=== PATIENT | female | born 1950 | race Hispanic/Latino ===

== ENCOUNTER → 2024-12-13 | Day surgery (SDC) | payer BC ==
[2024-12-10 10:38] LABS: BASOPHILS % 0.8 % (0.0-1.0); EOSINOPHILS % 3.4 % (0.0-6.0); LYMPHOCYTES % 22.5 % (18.0-39.1); MONOCYTES % 7.7 % (4.4-11.3); NEUTROPHILS % 65.3 % (38.7-80.0); RED CELL DISTRIBUTION WIDTH 14.5 % (11.7-14.4)
[~2024-12-13] MED LIST: ACETAMINOPHEN 1000 MG/100 ML 100 ML IV ONE; ACETAMINOPHEN 1000 MG/100 ML IV PRN; ADVAIR 100-501 EACH INH; ARIMIDEX1 MG PO; ASPIRIN 325 MG TAB PO SCH; ATORVASTATIN CA10 MG PO; CELECOXIB 100 MG CAP PO SCH; D3-5000125 MCG; DIOVAN80 MG PO; DIPHENHYDRAMINE HCL INJ 50 MG/ML VIAL IV PRN; DOCUSATE SODIUM 100 MG CAP PO PRN; EPHEDRINE SULFATE INJ 50 MG/ML VIAL ONE; FENTANYL CITRATE/PF 100MCG/2 ML INJ ONE; HYDROCODONE/APAP 5MG-325MG TAB PO PRN; LIDOCAINE HCL 2% LOCAL INJ 5 ML SDV VIAL INJ ONE; MAGNESIUM CITRA; MONTELUKAST SOD10 MG PO; MOUNJARO2.5 MG/0.5; ONDANSETRON HCL INJ 2MG/ML 2ML 2 MG/ML VIAL IV PRN; ONDANSETRON HCL INJ 2MG/ML 2ML 2 MG/ML VIAL ONE; PROPOFOL IV EMULSION 10 MG/ML 20 ML VIAL ONE; ROPIVACAINE 246.25 MG, EPINEPHRINE HCL 1:1000 1ML 0.5 MG, CLONIDINE HCL 0.08 MG, KETORO... INJ ONE; ROPIVACAINE/EPI/CLONIDINE/KET 50 ML SYRINGE INJ ONE; SEVOFLURANE INHAL SOLN 250 ML PEN BTL ONE; SODIUM CHLORIDE 0.9% 1000ML 1,000 ML IV SCH; VENTOLIN HFA18 GM INH
[2024-12-13] MEDS: GABAPENTIN 300 MG CAP ONE (06:08)
[2024-12-13] MEDS: CELECOXIB 200 MG CAP ONE (06:08)
[2024-12-13] MEDS: DEXAMETHASONE SOD PHOS 10 MG/1 ML VIAL ONE (06:08)
[2024-12-13] MEDS: CEFAZOLIN SODIUM 2 GM ONE (06:08)
[2024-12-13] MEDS: LACTATED RINGER'S 1,000 ML ONE (06:09)
[2024-12-13 08:18] VITALS: TEMP 97.3
[2024-12-13] MEDS: HYDROMORPHONE 1MG/1ML INJ ONE (08:35)
[2024-12-13] MEDS: HYDROCODONE/APAP 7.5MG-325MG 1 EA TAB PO PRN (09:00)
[2024-12-13] MEDS: KETOROLAC TROMETHAMINE 30 MG/ML VIAL ONE (09:17)
[2024-12-13 10:10] VITALS: BP 119/63; PULSE 88; RESP 16; O2SAT 98
== END | disposition home health service (06) ==
LOC: OR 05:21
PROVIDERS: ATTEND Specialist
DX: M87.052 Idiopathic aseptic necrosis of left femur (principal); M16.12 Unilateral primary osteoarthritis, left hip; M81.0 Age-related osteoporosis without current pathological fracture; E66.9 Obesity, unspecified; E11.9 Type 2 diabetes mellitus without complications; I10 Essential (primary) hypertension; E78.5 Hyperlipidemia, unspecified; J45.909 Unspecified asthma, uncomplicated; R42 Dizziness and giddiness; Z01.810 Encounter for preprocedural cardiovascular examination; Z01.812 Encounter for preprocedural laboratory examination; Z01.818 Encounter for other preprocedural examination; Z79.85 Long-term (current) use of injectable non-insulin antidiabetic drugs; Z79.51 Long term (current) use of inhaled steroids; Z79.899 Other long term (current) drug therapy; Z68.41 Body mass index [BMI] 40.0-44.9, adult
CPT/HCPCS: 27130; 36415; 71046; 72170; 85025; 86850; 86900; 93005; 97116; 97161; 97530; C1713; C1776; J0131; J0169; J1100; J1171; J1885; J2003; J2405; J2704; J2795; J3010; J7121

== ENCOUNTER 2024-12-20 02:15 | Inpatient (IN) | payer BC, MEDICARE ==
[~2024-12-20] VITALS: Ht 144.8 cm; Wt 81.6 kg
[~2024-12-20 02:15] MED LIST changes: -ACETAMINOPHEN 1000 MG/100 ML 100 ML IV ONE; -ACETAMINOPHEN 1000 MG/100 ML IV PRN; -ASPIRIN 325 MG TAB PO SCH; -CELECOXIB 100 MG CAP PO SCH; -DIPHENHYDRAMINE HCL INJ 50 MG/ML VIAL IV PRN; -DOCUSATE SODIUM 100 MG CAP PO PRN; -EPHEDRINE SULFATE INJ 50 MG/ML VIAL ONE; -FENTANYL CITRATE/PF 100MCG/2 ML INJ ONE; -HYDROCODONE/APAP 5MG-325MG TAB PO PRN; -LIDOCAINE HCL 2% LOCAL INJ 5 ML SDV VIAL INJ ONE; -ONDANSETRON HCL INJ 2MG/ML 2ML 2 MG/ML VIAL IV PRN; -ONDANSETRON HCL INJ 2MG/ML 2ML 2 MG/ML VIAL ONE; -PROPOFOL IV EMULSION 10 MG/ML 20 ML VIAL ONE; -ROPIVACAINE 246.25 MG, EPINEPHRINE HCL 1:1000 1ML 0.5 MG, CLONIDINE HCL 0.08 MG, KETORO... INJ ONE; -ROPIVACAINE/EPI/CLONIDINE/KET 50 ML SYRINGE INJ ONE; -SEVOFLURANE INHAL SOLN 250 ML PEN BTL ONE; -SODIUM CHLORIDE 0.9% 1000ML 1,000 ML IV SCH
[2024-12-20 02:19] VITALS: TEMP 97.9
[2024-12-20 02:41] LABS: BASOPHILS % 0.3 % (0.0-1.0); EOSINOPHILS % 1.1 % (0.0-6.0); LYMPHOCYTES % 11.6 % (18.0-39.1); MONOCYTES % 6.8 % (4.4-11.3); NEUTROPHILS % 79.9 % (38.7-80.0); RED CELL DISTRIBUTION WIDTH 13.9 % (11.7-14.4)
[2024-12-20 03:04] LABS: EST GLOMERULAR FILTRATION RATE 46.0 ML/MIN (>=60)
[2024-12-20] MEDS: ONDANSETRON HCL INJ 2MG/ML 2ML 2 MG/ML VIAL IV STA (03:04)
[2024-12-20] MEDS: SODIUM CHLORIDE 0.9% 1000ML 1,000 ML IV ONE (03:04)
[2024-12-20] MEDS ORDERED: BELLADONNA ALK/PHENOBARBITAL 5 ML UDC ONE (03:06)
[2024-12-20] MEDS ORDERED: LIDOCAINE VISC 2% SOLN 15 ML UDC ONE (03:06)
[2024-12-20] MEDS ORDERED: MAGNESIUM/ALUMINUM/SIMETHICONE 30 ML UDC ONE (03:06)
[2024-12-20 03:10] LABS: LEUKOCYTE ESTERASE ,URINE TRACE (NEGATIVE); PROTEIN,URINE DIPSTICK TRACE (NEGATIVE); URINE UROBILINOGEN 0.2 mg/dL (0.2 - 1)
[2024-12-20] MEDS: SUCRALFATE 1 GM TAB PO STA (03:14)
[2024-12-20] MEDS: DONNATAL/LIDOCAINE/MAALOX 30 ML SUSP PO ONE (03:14)
[2024-12-20] MEDS: FAMOTIDINE 20 MG/2 ML VIAL IV STA (03:14)
[2024-12-20 03:20] LABS: HYALINE CASTS 0-1 (0-1)
[2024-12-20 03:21] LABS: EPITHELIAL CELLS,URINE MANY /LPF
[2024-12-20] MEDS ORDERED: ONDANSETRON HCL INJ 2MG/ML 2ML 2 MG/ML VIAL IV PRN (04:30)
[2024-12-20] MEDS: SODIUM CHLORIDE 0.9% 1000ML 1,000 ML IV SCH (05:02)
[2024-12-20] MEDS ORDERED: IOPAMIDOL 370 MG/ML 100 ML INFUS..BTL INJ ONE (05:15)
[2024-12-20 06:15] VITALS: PULSE 97; RESP 19
[2024-12-20] MEDS ORDERED: HYDROCODONE/APAP 10MG-325MG TAB PO PRN (08:30)
[2024-12-20 09:00] VITALS: BP 145/55; PULSE 74; RESP 18; TEMP 98.2; O2SAT 98
[2024-12-20 09:02] VITALS: BP 145/55; PULSE 74; RESP 18; TEMP 98.2; O2SAT 98
[2024-12-20] MEDS: MAGNESIUM HYDROXIDE 30 ML UDC PO ONE (09:48)
[2024-12-20] MEDS: POLYETHYLENE GLYCOL 3350 17 GM PACK PO SCH (09:48)
[2024-12-20] MEDS: SENNA-S TABLET PO SCH (09:48)
[2024-12-20] MEDS: BISACODYL 10 MG SUPP PR ONE (09:55)
[2024-12-20] MEDS: ENOXAPARIN SOD INJ 40 MG/0.4 ML SYR SC SCH (16:45)
[2024-12-20] MEDS: BISACODYL 10 MG SUPP PR PRN (16:49)
[2024-12-20 20:00] VITALS: BP 163/71; PULSE 74; RESP 18; TEMP 97.7; O2SAT 99
[2024-12-20] MEDS: HYDRALAZINE HCL 20 MG/ML VIAL IV PRN (20:54)
[2024-12-20 21:00] VITALS: BP 163/71; PULSE 74; RESP 18; TEMP 97.7; O2SAT 99
[2024-12-20] MEDS ORDERED: KETAMINE HCL INJ 50 MG/ML 10 ML VIAL ONE (22:18)
[2024-12-20] MEDS: VALSARTAN 160 MG TAB PO SCH (22:30)
[2024-12-21] VITALS (10 sets, daily range): BP systolic 126–154; BP diastolic 60–78; PULSE 71–79; RESP 15–18; TEMP 97.9–98.8; O2SAT 93–99
[2024-12-21 00:03] LABS: % IRON SATURATION 12.0 % (15-50)
[2024-12-21] MEDS: MONTELUKAST SODIUM 10 MG TAB PO SCH (00:44)
[2024-12-21] MEDS: MAGNESIUM HYDROXIDE 30 ML UDC PO PRN (00:45)
[2024-12-21 05:02] LABS: BASOPHILS % 0.3 % (0.0-1.0); EOSINOPHILS % 0.8 % (0.0-6.0); LYMPHOCYTES % 15.3 % (18.0-39.1); MONOCYTES % 6.2 % (4.4-11.3); NEUTROPHILS % 77.0 % (38.7-80.0); RED CELL DISTRIBUTION WIDTH 14.0 % (11.7-14.4)
[2024-12-21] MEDS: ACETAMINOPHEN 325 MG TAB PO PRN (05:36)
[2024-12-21 05:50] LABS: EST GLOMERULAR FILTRATION RATE 67.0 ML/MIN (>=60)
[2024-12-21] MEDS: INHA INH SCH (07:00)
[2024-12-21] MEDS: [UNRECOGNIZED DRUG - OTHER] INH SCH (07:00)
[2024-12-21] MEDS: ANASTROZOLE 1 MG TAB PO SCH (08:22)
[2024-12-21] MEDS ORDERED: [UNRECOGNIZED DRUG - OTHER] INH SCH (09:00)
[2024-12-21] MEDS ORDERED: INHA INH SCH (09:00)
[2024-12-21] MEDS ORDERED: PROPOFOL IV EMULSION 50 ML IV ONE (17:43)
[2024-12-21] MEDS ORDERED: PROPOFOL IV EMULSION 10 MG/ML 20 ML VIAL ONE (17:43)
[2024-12-21] MEDS ORDERED: LIDOCAINE HCL 2% LOCAL INJ 5 ML SDV VIAL INJ ONE (17:43)
[2024-12-21] MEDS ORDERED: LABETALOL HCL 20 ML ONE (18:10)
[2024-12-21] MEDS ORDERED: ONDANSETRON HCL INJ 2MG/ML 2ML 2 MG/ML VIAL ONE ×2 (18:16→18:43)
[2024-12-21] MEDS ORDERED: DEXAMETHASONE SOD PHOS INJ 4 MG/ML SDV ONE ×2 (18:17→18:43)
[2024-12-21] MEDS ORDERED: METOCLOPRAMIDE HCL 10 MG/2ML VIAL ONE ×2 (18:17→18:43)
[2024-12-22] VITALS (10 sets, daily range): BP systolic 118–150; BP diastolic 48–68; PULSE 64–85; RESP 16–20; TEMP 97.7–98.4; O2SAT 96–100
[2024-12-22 08:01] LABS: BASOPHILS % 0.3 % (0.0-1.0); EOSINOPHILS % 0.0 % (0.0-6.0); LYMPHOCYTES % 11.3 % (18.0-39.1); MONOCYTES % 2.6 % (4.4-11.3); NEUTROPHILS % 85.4 % (38.7-80.0); RED CELL DISTRIBUTION WIDTH 13.7 % (11.7-14.4)
[2024-12-22] MEDS: METOCLOPRAMIDE HCL 10 MG/2ML VIAL IV SCH (08:32)
[2024-12-22 08:40] LABS: EST GLOMERULAR FILTRATION RATE 75.0 ML/MIN (>=60)
[2024-12-22] MEDS: CYANOCOBALAMIN INJ 1,000 MCG/ML VIAL IM ONE (23:22)
[2024-12-23] VITALS: BP 134/47; PULSE 86; RESP 20; TEMP 98.7; O2SAT 100
[2024-12-23 04:00] VITALS: BP 146/59; PULSE 72; RESP 18; TEMP 98; O2SAT 96
[2024-12-23 07:19] VITALS: PULSE 70; RESP 18; O2SAT 96
[2024-12-23 08:00] VITALS: BP 146/82; PULSE 84; RESP 19; TEMP 97.7; O2SAT 99
[2024-12-23] MEDS: CYANOCOBALAMIN INJ 1,000 MCG/ML VIAL IM SCH (09:09)
[2024-12-23] MEDS: IRON SUCROSE 100 MG in SODIUM CHLORIDE 0.9% 100 ML IV SCH (09:10)
[2024-12-23 09:26] VITALS: BP 146/82; PULSE 84; RESP 19; TEMP 97.7; O2SAT 99
== END 2024-12-23 10:30 | disposition home or self-care (01) | DRG 378 ==
LOC: ER 02:19 → ERHOLD 04:28 → OBSVTOIN 08:35 → MED/SURG 09:06
PROVIDERS: ADMIT Internal Medicine; ATTEND Internal Medicine
PROC: 0DB78ZX Excision of Stomach, Pylorus, Via Natural or Artificial Opening Endoscopic, Diagnostic (ICD-10-PCS; 2024-12-21)
PROC: 0DB48ZX Excision of Esophagogastric Junction, Via Natural or Artificial Opening Endoscopic, Diagnostic (ICD-10-PCS; principal; 2024-12-21 17:57)
DX: K26.4 Chronic or unspecified duodenal ulcer with hemorrhage (principal); D62 Acute posthemorrhagic anemia; N39.0 Urinary tract infection, site not specified; K29.81 Duodenitis with bleeding; K29.70 Gastritis, unspecified, without bleeding; E86.0 Dehydration; I10 Essential (primary) hypertension; E78.5 Hyperlipidemia, unspecified; K21.9 Gastro-esophageal reflux disease without esophagitis; K59.00 Constipation, unspecified; R11.2 Nausea with vomiting, unspecified; J45.909 Unspecified asthma, uncomplicated; E66.9 Obesity, unspecified; Z79.85 Long-term (current) use of injectable non-insulin antidiabetic drugs; Z79.51 Long term (current) use of inhaled steroids
CPT/HCPCS: 36415; 43239; 74177; 80048; 80053; 81001; 82607; 82728; 82746; 83540; 83690; 84466; 85014; 85018; 85025; 85045; 88305; 93005; 94664; 94799; 99284; J0360; J0696; J1100; J1308; J1650; J1756; J2003; J2405; J2470; J2765; J3420; J7030; J7050; Q9967